=== PATIENT | female | born 1990 | race Two or more races ===

== ENCOUNTER 2019-04-29 04:01 | Emergency (ER) | payer MEDICAID, OTHER ==
[~2019-04-29] VITALS: Ht 162.6 cm; Wt 104.5 kg
[2019-04-29] MEDS ORDERED: ondansetron/PF 4mg/2ml inj IV STA (04:15)
[2019-04-29] MEDS ORDERED: normal saline 1000ml 1,000 ML IVB ONE (04:15)
[2019-04-29] MEDS ORDERED: ketorolac trometh. 30mg/ml inj. IV STA (04:15)
--- NOTE | 2019-04-29 04:27 | NUR ---
rolling in pain, had an episode of wretching and vomiting, nearly lost her IV. Coban'd IV site. Cool wash clothe to forehead. She has no relief from medication yet.
[2019-04-29] MEDS ORDERED: morphine 4 MG/ML inj SYRINge IV ONE ×2 (04:45→05:40)
[2019-04-29 04:52] LABS: ALANINE AMINOTRANSFERASE 54 U/L (12-78); ALBUMIN 3.9 G/DL (3.4-5.0); ALBUMIN/GLOBULIN RATIO 1.1 (1.1-1.5); ALKALINE PHOSPHATASE 56 IU/L (46-116); ANION GAP 14 (8-16); ASPARTATE AMINO TRANSFERASE 30 U/L (10-37); BILIRUBIN,TOTAL 0.6 MG/DL (0.1-1.0); BLOOD UREA NITROGEN 11 MG/DL (7-18); BUN/CREATININE RATIO 12.1 (6.6-38.0); CHLORIDE 105 MMOL/L (99-107); CREATININE 0.91 MG/DL (0.40-0.90); GLUCOSE 126 MG/DL (70-104); SODIUM 141 MMOL/L (135-145); TOTAL CARBON DIOXIDE 22.3 MMOL/L (24-32); TOTAL PROTEIN 7.6 G/DL (6.4-8.2); eGFR 74 ML/MIN
[2019-04-29 05:01] LABS: BASOPHILS # (AUTO) 0.1 X10'3 (0-0.2); EOSINOPHILS # (AUTO) 0.2 X10'3 (0-0.9)
[2019-04-29 05:03] LABS: BASOPHILS % (AUTO) 0.8 % (0-1); EOSINOPHILS % (AUTO) 1.7 % (0-6); HEMATOCRIT 40.6 % (35.0-45.0); HEMOGLOBIN 13.9 g/dl (12.0-16.0); MEAN CORPUSCULAR HEMOGLOBIN 29.5 PG (27.0-31.0); MEAN CORPUSCULAR HGB CONC 34.2 g/dL (33.0-36.5); MEAN CORPUSCULAR VOLUME 86.3 FL (78-98); MEAN PLATELET VOLUME 7.7 FL (7.4-10.4); MONOCYTES # (AUTO) 0.8 X10'3 (0-0.9); MONOCYTES % (AUTO) 8.7 % (2-12); NEUTROPHILS # (AUTO) 3.6 X10'3 (1.8-7.7); NEUTROPHILS % (AUTO) 36.8 % (42-75); PLATELET COUNT 389 X10'3 (140-440); RED BLOOD COUNT 4.71 X10'6 (4.20-5.60); RED CELL DISTRIBUTION WIDTH 13.2 % (11.5-14.5); WHITE BLOOD COUNT 9.6 X10'3 (4.5-11.0)
[2019-04-29] MEDS ORDERED: potassium 10mEq/100ml NS w/LIDOcaine (10mg/bag) IV ONE (05:05)
[2019-04-29] MEDS ORDERED: potassium Cl 10 mEq/100mL bag IV ONE (05:15)
[2019-04-29] MEDS ORDERED: ondansetron/PF 4mg/2ml inj IV ONE (05:20)
[2019-04-29 05:54] LABS: CLARITY,URINE CLOUDY (Clear); COLOR,URINE YELLOW (Yellow); GLUCOSE, URINE 100 mg/dl (Neg); KETONES,URINE TRACE mg/dl (Neg); LEUKOCYTE ESTERASE ,URINE NEGATIVE (Neg); NITRITES, URINE NEGATIVE (Neg); OCCULT BLOOD,URINE MODERATE (Neg); PH,URINE 5.5 (4.8-8.0); PROTEIN,URINE NEGATIVE (Neg); UROBILINOGEN,URINE 0.2 E.U/dL (0.2-1.0)
[2019-04-29 05:55] LABS: URINE HCG NEGATIVE (NEG)
[2019-04-29] MEDS ORDERED: HYDR-3965 PO (06:03)
[2019-04-29] MEDS ORDERED: ONDA8TAB6 PO (06:06)
[2019-04-29 06:09] LABS: UA COLLECTION TYPE CLN CATCH MIDSTREAM
[2019-04-29 06:10] LABS: BACTERIA,URINE 2+ /HPF (Neg); MUCUS STRANDS MANY /LPF (Neg); SQUAMOUS EPITHELIAL CELL,UR MANY /LPF (FEW); WBC,URINE 0-4 /HPF (0-4)
[2019-04-29 06:11] LABS: CAL OXALATE CRYSTALS 2+ /HPF (NEGATIVE)
[2019-04-29 06:35] LABS: TOTAL CELLS COUNTED 100
[2019-04-29 06:36] LABS: LARGE PLATELETS FEW; PLATELET ESTIMATE NORMAL
[2019-04-29 07:10] VITALS: BP 125/75
== END 2019-04-29 07:17 | disposition home or self-care (01) ==
LOC: ER 04:03
DX: N20.9 Urinary calculus, unspecified (principal); R11.2 Nausea with vomiting, unspecified; F12.90 Cannabis use, unspecified, uncomplicated; R79.1 Abnormal coagulation profile; Z79.899 Other long term (current) drug therapy
CPT/HCPCS: 36415; 74176; 80053; 81001; 81025; 85025; 85610; 96361; 96374; 96375; 96376; 99284; J1885; J2270; J2405; J3480; J7030

== ENCOUNTER 2019-05-07 20:06 | Emergency (ER) | payer MEDICAID, OTHER ==
[~2019-05-07] VITALS: Ht 162.6 cm; Wt 109.1 kg
[~2019-05-07 20:06] MED LIST: HYDR-3965 PO; ONDA8TAB6 PO
[2019-05-07] MEDS ORDERED: ondansetron/PF 4mg/2ml inj IV ONE ×2 (20:25→23:45)
[2019-05-07] MEDS ORDERED: ketorolac trometh. 30mg/ml inj. IV ONE (20:25)
--- NOTE | 2019-05-07 20:25 | NUR ---
pER LESLEE GRAYSON, GIVE PT'S HX, HOLD STANDARD ABDO PROTOCOLS @ THIS TIME.
[2019-05-07] MEDS ORDERED: acetaminophen 325mg tablet PO ONE (20:30)
[2019-05-07 21:02] LABS: URINE HCG NEGATIVE (NEG)
[2019-05-07 21:05] LABS: CLARITY,URINE SLIGHTLY CLOUDY (Clear); COLOR,URINE YELLOW (Yellow); GLUCOSE, URINE NEGATIVE (Neg); KETONES,URINE 15 mg/dl (Neg); LEUKOCYTE ESTERASE ,URINE NEGATIVE (Neg); NITRITES, URINE NEGATIVE (Neg); OCCULT BLOOD,URINE LARGE (Neg); PH,URINE 5.5 (4.8-8.0); PROTEIN,URINE TRACE mg/dl (Neg); UROBILINOGEN,URINE 0.2 E.U/dL (0.2-1.0)
[2019-05-07] MEDS ORDERED: LIDOCAINE 1% IV ONE (21:05)
[2019-05-07] MEDS ORDERED: NORMAL SALINE IV ONE (21:05)
[2019-05-07 21:10] LABS: UA COLLECTION TYPE VOIDED
[2019-05-07 21:12] LABS: BACTERIA,URINE 2+ /HPF (Neg); SQUAMOUS EPITHELIAL CELL,UR MANY /LPF (FEW); WBC,URINE 0-4 /HPF (0-4)
[2019-05-07 21:18] LABS: BASOPHILS # (AUTO) 0.1 X10'3 (0-0.2); BASOPHILS % (AUTO) 0.5 % (0-1); EOSINOPHILS # (AUTO) 0.1 X10'3 (0-0.9); EOSINOPHILS % (AUTO) 0.5 % (0-6); HEMATOCRIT 40.8 % (35.0-45.0); HEMOGLOBIN 13.8 g/dl (12.0-16.0); LYMPHOCYTES # (AUTO) 2.9 X10'3 (1.1-4.8); LYMPHOCYTES % (AUTO) 26.1 % (21-51); MEAN CORPUSCULAR HEMOGLOBIN 29.1 PG (27.0-31.0); MEAN CORPUSCULAR HGB CONC 33.9 g/dL (33.0-36.5); MEAN PLATELET VOLUME 7.1 FL (7.4-10.4); MONOCYTES # (AUTO) 0.8 X10'3 (0-0.9); MONOCYTES % (AUTO) 7.1 % (2-12); NEUTROPHILS # (AUTO) 7.3 X10'3 (1.8-7.7); NEUTROPHILS % (AUTO) 65.8 % (42-75); PLATELET COUNT 372 X10'3 (140-440); RED BLOOD COUNT 4.75 X10'6 (4.20-5.60); RED CELL DISTRIBUTION WIDTH 13.3 % (11.5-14.5); WHITE BLOOD COUNT 11.1 X10'3 (4.5-11.0)
[2019-05-07 21:20] LABS: ALBUMIN 4.2 G/DL (3.4-5.0); ANION GAP 12 (8-16); BLOOD UREA NITROGEN 16 MG/DL (7-18); BUN/CREATININE RATIO 17.6 (6.6-38.0); CALCIUM 9.1 MG/DL (8.5-10.1); CHLORIDE 104 MMOL/L (99-107); CREATININE 0.91 MG/DL (0.40-0.90); GLUCOSE 88 MG/DL (70-104); POTASSIUM 3.6 MMOL/L (3.5-5.1); SODIUM 140 MMOL/L (135-145); TOTAL CARBON DIOXIDE 24.3 MMOL/L (24-32); eGFR 74 ML/MIN
[2019-05-07] MEDS ORDERED: HYDROmorphone 1 mg/ml syringe IV ONE ×2 (22:00→23:05)
[2019-05-07 22:37] VITALS: BP 128/80
[2019-05-07] MEDS ORDERED: NO HOME MEDS (22:50)
--- NOTE | 2019-05-07 23:09 | NUR ---
pt just given dilaudid 1 mg iv for increasing pain of 7 out of 10 to right "ribs and low back". fiance at bedside. pt with stable vs. awaiting hospitalist. med rec completed, pt takes no home meds.
--- NOTE | 2019-05-07 23:44 | NUR ---
PT WITH STABLE VS. REPORTING NAUSEA 10 MIN AFTER RECEIVING DILAUDID. VERBAL RECEIVED FOR ZOFRAN.
[2019-05-08] MEDS ORDERED: TADA20TA PO (00:12)
[2019-05-08] MEDS ORDERED: ONDA4TAB6 PO (00:12)
[2019-05-08] MEDS ORDERED: KETO10TA2 PO (00:12)
[2019-05-08] MEDS ORDERED: HYDR-4353 PO (00:12)
[2019-05-08] MEDS ORDERED: ondansetron 4mg rapidly disintigrating tab PO ONE (00:40)
== END 2019-05-08 00:49 | disposition home or self-care (01) ==
LOC: ER 20:06
DX: N20.0 Calculus of kidney (principal); F12.90 Cannabis use, unspecified, uncomplicated; Z79.899 Other long term (current) drug therapy
CPT/HCPCS: 36415; 80048; 81001; 81025; 85025; 96365; 96375; 96376; 99283; J1170; J1885; J2001; J2405